=== PATIENT | female | born 1980 | race Hispanic/Latino ===

== ENCOUNTER 2023-11-08 14:04 | Emergency (ER) | payer SELFPAY ==
[2023-11-08] MEDS ORDERED: Cyclobenzaprine 10 MG TAB ONE (15:29)
[2023-11-08] MEDS ORDERED: Ketorolac Tromethamine 30 MG (1 mL) VIAL ONE (15:29)
[2023-11-08] MEDS ORDERED: Gabapentin 100 MG CAP ONE ×2 (15:30)
[2023-11-08] MEDS ORDERED: Lidocaine 4% Patch TD SCH (15:45)
[2023-11-08 17:02] LABS: Bacteria/HPF None Seen HPF (None Seen); Bilirubin Negative (Negative); Blood, Urine 1+ (Negative); CAUTI Indications for Culture Pelvic or flank pain; Clarity Clear (Clear); Glucose, Urine (Dipstick) Normal (Negative); Ketone, Urine Negative (Negative); Leukocyte Negative Leu/uL (Negative); Nitrite Negative (Negative); Protein, Urine (Dipstick) Negative (Neg-Trace); Specific Gravity, Urine 1.027 (1.002-1.036); Squamous Epithelial 0-3 HPF (0-3); Urobilinogen Normal mg/dL (Less than 2); WBC/HPF None Seen HPF (0-3)
[2023-11-08 17:04] LABS: Urine Culture Reflex No No
[2023-11-09] MEDS ORDERED: Transdermal Patch Removal TOP SCH (04:00)
== END 2023-11-08 17:31 | disposition home or self-care (01) ==
LOC: ERS 14:04
DX: M54.41 Lumbago with sciatica, right side (principal); N20.0 Calculus of kidney; F17.290 Nicotine dependence, other tobacco product, uncomplicated
CPT/HCPCS: 72131; 81001; 96372; J1885

== ENCOUNTER → 2023-12-12 | Day surgery (SDC) | payer SELFPAY ==
[~2023-12-12] MED LIST: Rabies Vaccine Human 2.5 UNITS VIAL ONE
== END ==
LOC: ERS 11:51
PROVIDERS: ATTEND Radiology Vascular & Interventional Radiology
DX: Z23 Encounter for immunization (principal); Z91.040 Latex allergy status
CPT/HCPCS: 90675

== ENCOUNTER 2023-12-13 14:11 | Emergency (ER) | payer SELFPAY, OTHER ==
[2023-12-13] MEDS ORDERED: Acetaminophen 500 MG TAB ONE (15:45)
[2023-12-13] MEDS ORDERED: Ketorolac Tromethamine 30 MG (1 mL) VIAL ONE (15:45)
[2023-12-13] MEDS ORDERED: Methocarbamol 500 MG TAB ONE (16:29)
[2023-12-13 17:33] LABS: #Basophils Less than 0.03 10x3/uL (0.0-0.2); %Basophils 0.2 % (0.0-1.0); %Eosinophils 4.8 % (0.0-10.0); %Monocytes 5.8 % (0.0-10.0); Hematocrit 36.9 % (36.0-47.0); Hemoglobin 12.3 g/dL (12.0-16.0); Mean Corpuscular HGB CONC 33.3 g/dL (32.0-36.0); Mean Corpuscular Hemoglobin 30.4 pg (27.0-31.0); Mean Corpuscular Volume 91.1 fL (78.0-98.0); Mean Platelet Volume 9.1 fL (7.4-10.4); Platelet Count 250 10x3/uL (130-400); RBC Distribution Width 12.3 % (11.5-14.5); Red Blood Cell (RBC) Count 4.05 mill/uL (4.20-5.40)
[2023-12-13 17:44] LABS: BHCG - Serum Negative (NEGATIVE); Pregs Control Background? CLEAR/WHITE (CLR/WHITE); Pregs Control Bar Appear? YES (CONTROL BAR)
[2023-12-13 17:46] LABS: ALT (SGPT) 19 U/L (8-55); AST (SGOT) 16 U/L (5-34); Alkaline Phosphatase 42 U/L (40-110); Anion Gap 13 mmol/L (10-20); BUN (Urea Nitrogen) 11 mg/dL (7.0-18.7); Bilirubin, Total 0.5 mg/dL (0.2-1.2); Calc. Creatinine Clearance 0 mL/min (70-130); Calcium 9.4 mg/dL (7.8-10.44); Carbon Dioxide 23 mmol/L (22-29); Chloride 107 mmol/L (98-107); Estimated GFR 110; Glucose 89 mg/dL (70-105); Potassium 3.9 mmol/L (3.5-5.1); Sodium 139 mmol/L (136-145)
[2023-12-13 18:50] LABS: Bacteria/HPF None Seen HPF (None Seen); Bilirubin Negative (Negative); Blood, Urine Trace (Negative); CAUTI Indications for Culture Pelvic or flank pain; Clarity Clear (Clear); Glucose, Urine (Dipstick) Normal (Negative); Ketone, Urine Negative (Negative); Leukocyte Negative Leu/uL (Negative); Nitrite Negative (Negative); Protein, Urine (Dipstick) Negative (Neg-Trace); RBC/HPF 0-3 HPF (0-3); Specific Gravity, Urine 1.014 (1.002-1.036); Squamous Epithelial 0-3 HPF (0-3); Urobilinogen Normal mg/dL (Less than 2); WBC/HPF 0-3 HPF (0-3)
[2023-12-13 18:53] LABS: Urine Culture Reflex No No
== END 2023-12-13 19:08 | disposition home or self-care (01) ==
LOC: ERS 14:11
DX: M54.9 Dorsalgia, unspecified (principal); G89.29 Other chronic pain; F17.290 Nicotine dependence, other tobacco product, uncomplicated
CPT/HCPCS: 36415; 74176; 80053; 81001; 84703; 85025; 96372; J1885